=== PATIENT | male | born 1975 | race Caucasian/White ===

== ENCOUNTER 2019-07-05 10:01 | Emergency (ER) | payer BC, OTHER ==
[2019-07-05 11:15] LABS: ABS Basophils 0.1 10^3/ul (0-0.2); ABS Eosinophils 0.1 10^3/ul (0-0.6); ABS Lymphocytes 1.4 10^3/ul (1.0-4.8); ABS Monocytes 0.9 10^3/ul (0-0.8); ABS Neutrophils 7.1 10^3/ul (1.5-7.7); Eosinophil % 1.1 %; Hematocrit 44 % (42-52); Hemoglobin 15.4 g/dL (14.0-18.0); Lymphocyte % 14.4 %; Mean Corpuscular HGB Conc 35 g/dL (31-36); Mean Corpuscular Hemoglobin 30 pg (27-31); Mean Corpuscular Volume 86 fL (80-94); Mean Platelet Volume 8.1 fL (7.4-10.4); Platelet Count 267 10^3/uL (150-450); Red Blood Count 5.12 10^6 /uL (4.18-5.48); Red Cell Distribution Width 13 % (10-15); White Blood Count 9.6 10^3/uL (3.5-10.8)
[2019-07-05 11:27] LABS: Albumin 4.9 g/dL (3.2-5.2); Calcium 9.8 mg/dL (8.6-10.3); Potassium 4.7 mmol/L (3.5-5.0); Total Bilirubin 0.7 mg/dL (0.2-1.0)
[2019-07-05 11:33] LABS: Albumin/Globulin Ratio 1.8 (1-3); BUN/Creatinine Ratio 12.9 (8-20); C Reactive Protein 3.66 mg/L (<8.01); EGFR African American 82.4 (>60); EGFR Non-African American 68.1 (>60); Globulin 2.7 g/dL (2-4); Total Protein 7.6 g/dL (6.4-8.9)
[2019-07-05] MEDS ORDERED: Morphine 4 MG/ML VIAL (1 ml) 4 MG/ML VIAL IV ONE ×2 (12:46→16:23)
--- NOTE | 2019-07-05 13:53 | ED ---
Headache - HPI Summary HPI Summary: Pt is a 44 y/o M presenting to the ED with a chief complaint of a headache. He states he had his R upper wisdom tooth out about 4 weeks ago, and had to have a couple of smaller surgeries after to take out pieces of bone. On 07/02/19, he experienced a sudden, sharp, stabbing pain in his R jaw that still comes on intermittently, and he has an edematous area on his R sikhism. He and his went to the ED where they did a CT with contrast and they saw a protrusion in his sinus but nothing conclusive, so they increased his dose of abx. The pts dentist placed a drain in the wound on 07/04, which was taken out on the morning of 07/05, and it did drain some purulence from the site. He reports slight photophobia onset today, jaw pain, and headache. He denies fever and visual changes. - History Of Current Complaint Chief Complaint: EDHeadache Stated Complaint: SEVERE HEADACHE PER Time Seen by Provider: 07/05/19 12:30 Hx Obtained From: Patient Onset/Duration: Gradual Onset, Started days ago, Still Present Initially Headache Was: Moderate Currently Pain Is: Severe Timing: Intermittent, Lasting:, Minutes Character: Sharp Location of Headache: Temporal - R Aggravating Factor: Bright Lights Allevating Factors: Nothing Associated Signs And Symptoms: Negative - fever, visual changes, Other (Noted In Comments) - dental pain, edematous area on side of R head - Allergies/Home Medications Allergies/Adverse Reactions: Allergies Allergy/AdvReac Type Severity Reaction Status Date / Time No Known Allergies Allergy Verified 01/29/16 08:08 Home Medications: Home Medications Clindamycin Cap(NF) [Clindamycin Cap 300 mg Cap(NF)] 300 mg PO Q6H 07/05/19 [ History Confirmed 07/05/19] Ibuprofen TAB* [Motrin TAB* 600 MG] 600 mg PO Q8H PRN 07/05/19 [History Confirmed 07/05/19] Pantoprazole TAB (NF) [Protonix TAB (NF)] 20 mg PO DAILY PRN 07/05/19 [History Confirmed 07/05/19] PMH/Surg Hx/FS Hx/Imm Hx Previously Healthy: Yes Endocrine/Hematology History: Denies: Hx Diabetes Cardiovascular History: Denies: Hx Hypertension - Surgical History Surgery Procedure, Year, and Place: app[facility] Infectious Disease History: No Infectious Disease History: Denies: Traveled Outside the [place] in Last 30 Days - Family History Known Family History: Negative: Cardiac Disease - Social History Alcohol Use: None Hx Substance Use: No Substance Use Type: Reports: None Hx Tobacco Use: No Smoking Status (MU): Never Smoked Tobacco Review of Systems Negative: Fever Positive: Photophobia. Negative: Other - visual changes Positive: Dental Pain - w/ purulence from wound site, Other - jaw pain Positive: Headache All Other Systems Reviewed And Are Negative: Yes Physical Exam - Summary Physical Exam Summary: Constitutional: Well-developed, Well-nourished, Alert. (-) Distressed Skin: Warm, Dry HENT: Edema R sikhism, trismus, surgical site on R cheek with no obvious fluctuance or induration. Eyes: Conjunctiva normal, PERRL, EOMI Neck: Musculoskeletal ROM normal neck. (-) JVD, (-) Stridor, (-) Tracheal deviation Cardio: Rhythm regular, rate normal, Heart sounds normal; Intact distal pulses; The pedal pulses are 2+ and symmetric. Radial pulses are 2+ and symmetric. (-) Murmur Pulmonary/Chest wall: Effort normal. (-) Respiratory distress, (-) Wheezes, (-) Rales Abd: Soft, (-) tenderness, (-) Distension, (-) Guarding, (-) Rebound Musculoskeletal: (-) Edema Lymph: (-) Cervical adenopathy Neuro: Alert, Oriented x3 Psych: Mood and affect Normal Triage Information Reviewed: Yes Vital Signs On Initial Exam: Initial Vitals Temp Pulse Resp BP Pulse Ox 97.3 F 55 18 143/85 99 07/05/19 10:06 07/05/19 10:06 07/05/19 10:06 07/05/19 10:06 07/05/19 10:06 Vital Signs Reviewed: Yes Diagnostics - Vital Signs Vital Signs Temp Pulse Resp BP Pulse Ox 07/05/19 13:00 57 100 07/05/19 12:58 60 160/84 100 07/05/19 12:56 16 07/05/19 12:03 96.9 F 59 20 142/94 98 07/05/19 10:06 97.3 F 55 18 143/85 99 - Laboratory Lab Results: Lab Results 07/05/19 07/05/19 07/05/19 Range/Units 10:50 10:50 10:50 WBC 9.6 (3.5-10.8) 10^3/uL RBC 5.12 (4.18-5.48) 10^6 /uL Hgb 15.4 (14.0-18.0) g/dL Hct 44 (42-52) % MCV 86 (80-94) fL MCH 30 (27-31) pg MCHC 35 (31-36) g/dL RDW 13 (10-15) % Plt Count 267 (150-450) 10^3/uL MPV 8.1 (7.4-10.4) fL Neut % (Auto) 74.4 % Lymph % (Auto) 14.4 % [place] % (Auto) 9.3 % Eos % (Auto) 1.1 % Baso % (Auto) 0.8 % Absolute Neuts (auto) 7.1 (1.5-7.7) 10^3/ul Absolute Lymphs (auto) 1.4 (1.0-4.8) 10^3/ul Absolute Monos (auto) 0.9 H (0-0.8) 10^3/ul Absolute Eos (auto) 0.1 (0-0.6) 10^3/ul Absolute Basos (auto) 0.1 (0-0.2) 10^3/ul Absolute Nucleated RBC 0.0 10^3/ul Nucleated RBC % 0.0 Sodium 137 (135-145) mmol/L Potassium 4.7 (3.5-5.0) mmol/L Chloride 102 (101-111) mmol/L Carbon Dioxide 28 (22-32) mmol/L Anion Gap 7 (2-11) mmol/L BUN 15 (6-24) mg/dL Creatinine 1.16 (0.67-1.17) mg/dL Est GFR ( Amer) 82.4 (>60) Est GFR (Non-Af Amer) 68.1 (>60) BUN/Creatinine Ratio 12.9 (8-20) Glucose 99 (70-100) mg/dL Lactic Acid 1.3 (0.5-2.0) mmol/L Calcium 9.8 (8.6-10.3) mg/dL Total Bilirubin 0.70 (0.2-1.0) mg/dL AST 23 (13-39) U/L ALT 21 (7-52) U/L Alkaline Phosphatase 62 (34-104) U/L C-Reactive Protein 3.66 (<8.01) mg/L Total Protein 7.6 (6.4-8.9) g/dL Albumin 4.9 (3.2-5.2) g/dL Globulin 2.7 (2-4) g/dL Albumin/Globulin Ratio 1.8 (1-3) Result Diagrams: 07/05/19 10:50 07/05/19 10:50 Lab Statement: Any lab studies that have been ordered have been reviewed, and results considered in the medical decision making process. - Radiology Brain MRI Radiology Interpretation Completed By: Radiologist Summary of Radiographic Findings: 1. Normal contrast-enhanced MRI of the brain. No evidence for brain abscess. 2. 1.2 cm mucous retention cyst or polyp at the RIGHT maxillary sinus. Mild retained secretions at the ethmoid sinuses. Negative for paranasal sinus fluid levels. ED physician has reviewed this report. Headache Course/Dx - Course Course Of Treatment: Patient is here with headache and swelling to his face. Patient has a complicated past month with a recent dental extraction and abscess drainage. Patient came in today after receiving an abscess drained yesterday with drain removal this morning. Patient continues to have headache with swelling in his right sikhism. Patient's surgeon is not positive what was going on so she was sent here. Patient had an MRI of his brain to evaluate for brain abscess. That was negative for abscess and patient was diagnosed with a cyst from his right maxillary sinus. There is no evidence of infection on labs with a normal WBC and CRP/ESR. Patient is given morphine for pain control which helped. Patient had no emergent condition identified on his MRI so she was discharged with home OMFS follow-up. Patient has an ENT will call to set up appointment for further evaluation of the cyst. - Diagnoses Provider Diagnoses: Headache, Mucous retention cyst of maxillary sinus Discharge - Sign-Out/Discharge Documenting (check all that apply): Patient Departure Patient Received Moderate/Deep Sedation with Procedure: No - Discharge Plan Condition: Stable Disposition: HOME Referrals: Care [facility] [Outside] Additional Instructions: Please follow up with your primary care provider within the next 2-3 days. Return to the emergency department with any new or worsening symptoms. - Billing Disposition and Condition Condition: STABLE Disposition: Home - Attestation Statements Document Initiated by Scribe: Yes Documenting Scribe: Karuna Unger Provider For Whom Margaret is Documenting (Include Credential): Cristino Mathis MD. Scribe Attestation: Karuna Priest, scribed for Cristino Mathis MD. on 07/05/19 at 2128. Scribe Documentation Reviewed: Yes Provider Attestation: The documentation as recorded by the [email or web address] hutton accurately reflects the service I personally performed and the decisions made by , Cristino Mathis MD. Status of Scribe Document: Viewed
[2019-07-05] MEDS ORDERED: Gadoteridol* (CONTRAST) 279.3 MG/ML 10 ML IV ONE (15:26)
[2019-07-05 17:33] VITALS: BP 124/78
== END 2019-07-05 17:58 | disposition home or self-care (01) ==
LOC: ED 10:01
DX: R51 Headache (principal); J34.1 Cyst and mucocele of nose and nasal sinus; Z79.899 Other long term (current) drug therapy
CPT/HCPCS: 36415; 70553; 80053; 83605; 85025; 86140; 87040; 96374; 96376; 99283; A9579; J2270